=== PATIENT | born 2000 | race Hispanic/Latino ===

== ENCOUNTER 2022-04-05 08:31 | Day surgery (SDC) | payer SELFPAY ==
[2022-04-05] MEDS ORDERED: Scopolamine 1.5 mg/72 hour Patch ONE (09:09)
[2022-04-05] MEDS ORDERED: Famotidine/PF 20 mg/2ml Vial ONE (09:10)
[2022-04-05] MEDS ORDERED: Fentanyl 100 MCG/2 ML VIAL ONE (09:10)
[2022-04-05] MEDS ORDERED: Midazolam HCl 2 mg/2 ml Vial ONE (09:10)
[2022-04-05] MEDS ORDERED: Bupivacaine 0.25% HCL 30 ML VIAL ONE (09:39)
[2022-04-05] MEDS ORDERED: EPINEPHrine 1 MG/ML AMP ONE (09:39)
[2022-04-05] MEDS ORDERED: CEFAZOLIN 2 GM VIAL ONE (10:28)
[2022-04-05] MEDS ORDERED: PROPOFOL 20 ML ONE (10:29)
[2022-04-05] MEDS ORDERED: Ondansetron PF 4 MG/2 ML Vial ONE (10:29)
[2022-04-05] MEDS ORDERED: Rocuronium Bromide 10 MG/ML (10ML VIAL) ONE (10:29)
[2022-04-05] MEDS ORDERED: Dexamethasone 4 mg/ml Vial ONE (10:29)
[2022-04-05] MEDS ORDERED: Esmolol 100 MG/10 ML VIAL ONE (10:32)
[2022-04-05] MEDS ORDERED: SUGAMMADEX SODIUM 200 MG/2 ML VIAL ONE (11:16)
[2022-04-05] MEDS ORDERED: Ketorolac Tromethamine 30 MG/ML VIAL ONE (11:18)
== END 2022-04-05 12:55 | disposition home or self-care (01) ==
LOC: CSHSDC/OP 08:31
PROVIDERS: ATTEND Surgery
PROC: 0DTJ4ZZ Resection of Appendix, Percutaneous Endoscopic Approach (ICD-10-PCS; principal; 2022-04-05)
DX: K35.80 Unspecified acute appendicitis (principal)
CPT/HCPCS: 88304; A4649; J0171; J1100; J1885; J2250; J2405; J2704; J3010; S0020; S0028